=== PATIENT | female | born 1945 | race Caucasian/White ===

== ENCOUNTER 2022-10-01 11:45 | Inpatient (IN) | payer OTHER ==
[~2022-10-01] VITALS: Ht 157.5 cm; Wt 71.7 kg
[2022-10-08] VITALS (10 sets, daily range): BP systolic 144–162; PULSE 75–87; RESP 16–20; TEMP 96.3–98; O2SAT 92–99
[2022-10-08] MEDS ORDERED: CEFAZOLIN SOD 2 GM in D5W 50 ML IV ONE (11:00)
[2022-10-08] MEDS ORDERED: fentaNYL CITRATE/PF 100 MCG/2 ML AMP IVP PRN ×2 (16:45)
[2022-10-08] MEDS ORDERED: ONDANSETRON HCL 4 MG/2 ML VIAL IVP PRN (16:45)
[2022-10-08] MEDS ORDERED: METOCLOPRAMIDE HCL 10 MG/2 ML VIAL IVP PRN (16:45)
[2022-10-08] MEDS ORDERED: NS 1000 ML IV.SOLN IV ONE (18:15)
[2022-10-08] MEDS ORDERED: KETOROLAC TROMETHAMINE 30 MG VIAL ONE (18:15)
[2022-10-08] MEDS ORDERED: ONDANSETRON HCL 4 MG/2 ML VIAL ONE (18:15)
[2022-10-08] MEDS ORDERED: ROCURONIUM BROMIDE 10 MG/ML (ZEMURON) ONE (18:15)
[2022-10-08] MEDS ORDERED: BUPIVACAINE /PF 0.25% 30 ML VIAL INJ ONE (18:15)
[2022-10-08] MEDS ORDERED: SEVOFLURANE 15 MIN GAS INH ONE (18:15)
[2022-10-08] MEDS ORDERED: PROPOFOL 200MG/ 20ML VIAL (DIPRIVAN) IV ONE (18:15)
[2022-10-08] MEDS ORDERED: LR 1,000 ML IV.SOLN IV ONE (18:15)
[2022-10-08] MEDS ORDERED: NS IRRIG SOLN 1000 ML IR ONE (18:15)
[2022-10-08] MEDS ORDERED: SUCCINYLCHOLINE CHLORIDE 20 MG/ML(QUELICIN) ONE (18:15)
[2022-10-08] MEDS ORDERED: MEPERIDINE 100 MG INJ. 100 MG/ML VIAL IV ONE (19:45)
[2022-10-08] MEDS ORDERED: MEPERIDINE HCL/PF 25 MG/ML DISP.SYRIN ONE (19:46)
[2022-10-08] MEDS ORDERED: AMPICILLIN SODIUM/SULBACTAM NA 3 GM VIAL ONE (23:00)
[2022-10-09] VITALS (8 sets, daily range): BP systolic 1–162; PULSE 53–98; RESP 15–20; TEMP 96.8–98.3; O2SAT 94–98
[2022-10-09] MEDS: LR 1,000 ML IV SCH ×3 (00:03→14:31)
[2022-10-09] MEDS: AMPICILLIN SODIUM/SULBACTAM NA 3 GM in NS 100 ML IV SCH ×3 (00:03→11:43)
[2022-10-09] MEDS: AMIODARONE HCL 200 MG TABLET PO SCH (08:26)
[2022-10-09] MEDS: LOSARTAN POTASSIUM 50 MG TABLET (COZAAR) PO SCH (08:27)
[2022-10-09] MEDS: ENOXAPARIN SODIUM 40 MG/0.4 ML SYRINGE SUBCUT SCH (08:27)
[2022-10-09] MEDS ORDERED: CANDESARTAN CILEXETIL 8 MG PO SCH (09:00)
[2022-10-09] MEDS: MORPHINE 4 MG INJ. 4 MG/ML VIAL IVP PRN (14:29)
[2022-10-10] VITALS (7 sets, daily range): BP systolic 133–151; PULSE 74–87; RESP 18; TEMP 97.1–98.4; O2SAT 94–98
[2022-10-10] MEDS: LOSARTAN POTASSIUM 50 MG TABLET (COZAAR) PO SCH (08:33)
[2022-10-10] MEDS: ENOXAPARIN SODIUM 40 MG/0.4 ML SYRINGE SUBCUT SCH (08:36)
[2022-10-10] MEDS: AMIODARONE HCL 200 MG TABLET PO SCH (08:36)
[2022-10-10] MEDS: LR 1,000 ML IV SCH (08:46)
[2022-10-10] MEDS: ONDANSETRON HCL 4 MG/2 ML VIAL IVP PRN ×2 (11:36→17:21)
[2022-10-10 13:34] LABS: BASOPHILS % (AUTO) 0.2 % (0.0-2.0); EOSINOPHILS # (AUTO) 0.1 K/uL (0.0-0.4); EOSINOPHILS % (AUTO) 0.9 % (0.0-4.0); HEMATOCRIT 33.6 % (36-48); HEMOGLOBIN 11.1 g/dL (12.0-16.0); LYMPHOCYTES # (AUTO) 0.6 K/uL (1.0-5.5); MEAN CORPUSCULAR HEMOGLOBIN 31 pg (27-31); MEAN CORPUSCULAR HGB CONC 33 % (32-36); MEAN CORPUSCULAR VOLUME 95 fL (79.0-98.0); MONOCYTES # (AUTO) 0.7 K/uL (0.0-1.0); MONOCYTES % (AUTO) 4.7 % (1.7-9.3); NEUTROPHILS # (AUTO) 13.1 K/uL (1.8-7.7); NEUTROPHILS % (AUTO) 90.2 % (40.0-70.0); PLATELET COUNT (AUTO) 204 K/uL (130-430); RED BLOOD CELL COUNT(AUTO) 3.55 MIL/uL (4.2-6.2); RED CELL DISTRIBUTION WIDTH 14.6 % (9.0-15.0); WHITE BLOOD COUNT (AUTO) 14.5 K/uL (4.8-10.8)
[2022-10-10] MEDS: MORPHINE 4 MG INJ. 4 MG/ML VIAL IVP PRN ×2 (17:21→21:53)
[2022-10-10] MEDS ORDERED: PIPERACILLIN/TAZOBACTAM 3.375 GM/VIAL (ZOSYN) IV ONE (22:27)
[2022-10-10] MEDS: PIPERACILLIN/TAZO 3.375/DEX-IS 50 ML IV SCH (22:32)
[2022-10-11] VITALS (7 sets, daily range): BP systolic 128–138; PULSE 61–76; RESP 12–18; TEMP 97.1–97.6; O2SAT 96–97
[2022-10-11] MEDS: PIPERACILLIN/TAZO 3.375/DEX-IS 50 ML IV SCH ×3 (02:35→12:21)
[2022-10-11] MEDS: MORPHINE 4 MG INJ. 4 MG/ML VIAL IVP PRN ×2 (06:05→12:52)
[2022-10-11 08:30] LABS: BASOPHILS % (AUTO) 0.3 % (0.0-2.0); EOSINOPHILS # (AUTO) 0.4 K/uL (0.0-0.4); EOSINOPHILS % (AUTO) 3.7 % (0.0-4.0); HEMATOCRIT 31.6 % (36-48); HEMOGLOBIN 10.7 g/dL (12.0-16.0); LYMPHOCYTES # (AUTO) 0.5 K/uL (1.0-5.5); LYMPHOCYTES % (AUTO) 5.1 % (20.5-51.5); MEAN CORPUSCULAR HEMOGLOBIN 32 pg (27-31); MEAN CORPUSCULAR HGB CONC 34 % (32-36); MEAN CORPUSCULAR VOLUME 94 fL (79.0-98.0); MONOCYTES # (AUTO) 0.6 K/uL (0.0-1.0); NEUTROPHILS # (AUTO) 8.5 K/uL (1.8-7.7); NEUTROPHILS % (AUTO) 84.9 % (40.0-70.0); PLATELET COUNT (AUTO) 194 K/uL (130-430); RED BLOOD CELL COUNT(AUTO) 3.35 MIL/uL (4.2-6.2); RED CELL DISTRIBUTION WIDTH 14.3 % (9.0-15.0)
[2022-10-11] MEDS: AMIODARONE HCL 200 MG TABLET PO SCH (09:46)
[2022-10-11] MEDS: LOSARTAN POTASSIUM 50 MG TABLET (COZAAR) PO SCH (09:47)
[2022-10-11] MEDS: ENOXAPARIN SODIUM 40 MG/0.4 ML SYRINGE SUBCUT SCH (09:48)
== END 2022-10-11 14:58 | disposition home or self-care (01) | DRG 337 ==
LOC: EDSTATUS 11:45 → SMU 10-08 09:16 → STU 10-08 19:24 → SMU 10-10 15:12
PROVIDERS: ADMIT Surgery; ATTEND Surgery
PROC: 0DSL4ZZ Reposition Transverse Colon, Percutaneous Endoscopic Approach (ICD-10-PCS; principal; 2022-10-10)
PROC: 8E0W4CZ Robotic Assisted Procedure of Trunk Region, Percutaneous Endoscopic Approach (ICD-10-PCS; 2022-10-10)
PROC: 0DN84ZZ Release Small Intestine, Percutaneous Endoscopic Approach (ICD-10-PCS; 2022-10-10)
PROC: 0DNU4ZZ Release Omentum, Percutaneous Endoscopic Approach (ICD-10-PCS; 2022-10-10)
DX: Z43.3 Encounter for attention to colostomy (principal); K66.0 Peritoneal adhesions (postprocedural) (postinfection); K43.2 Incisional hernia without obstruction or gangrene; K40.90 Unilateral inguinal hernia, without obstruction or gangrene, not specified as recurrent; Z90.49 Acquired absence of other specified parts of digestive tract
CPT/HCPCS: 36415; 82565; 85025; 87081; 88305; 94010; 94760; 97116-GP; 97163-GP; 97530-GP; C1727; E0190; G0378; J0295; J0330; J0690; J1650; J1885; J2175; J2270; J2405; J2543; J2704; J3490; J7030; J7040; J7060; J7120